=== PATIENT | male | born 1975 | race African-American/Black ===

== ENCOUNTER 2019-07-06 15:38 | Emergency (ER) | payer OTHER, SELFPAY ==
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
[2019-07-06 15:42] VITALS: BP 172/107; PULSE 93; RESP 16; TEMP 36.9; O2SAT 98
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
--- NOTE | 2019-07-06 16:43 | PC.NURSE ---
Pt unable to void at present. Explained clean catch urine collection procedure to patient.
[2019-07-06 17:39] LABS: Add Urine Microscopic? YES; Appearance Urine Clear (Clear); Bilirubin Urine Negative (Negative); Blood Urine Negative (Negative); Color Urine Yellow (Yellow); Glucose Urine UA Negative (Negative); Ketones Urine Negative (Negative); Leukocyte Esterase Ur 1+ LEU/UL (Negative); Nitrate Urine Negative (Negative); Protein Urine Negative (Negative); RBC Urine 0-2 /hpf (0-2); Specific Grav Ur 1.014 (1.001-1.035); Squamous Epithelial Cell Urine Rare /hpf (Few); Urobilinogen Urine Negative mg/dL (<2.0); WBC Urine 16-20 /hpf
[2019-07-06 18:02] VITALS: BP 168/96; PULSE 92; RESP 18; O2SAT 97
[2019-07-06 18:10] LABS: Basophils Absolute Auto 0.1 K/mm3 (0.0-0.1); Basophils Percent Auto 0.7 % (0.2-1.2); Eosinophils Absolute Auto 0.2 K/mm3 (0-0.3); Eosinophils Percent Auto 2.9 % (0-4.4); Hemoglobin 14.4 g/dL (14.0-18.0); Immature Granulocyte Absolute 0.03 K/mm3 (0.00-0.031); Immature Granulocyte Percent A 0.4 % (0-0.5); Lymphocytes Absolute Auto 3.38 K/mm3 (0.9-3.2); Lymphocytes Percent Auto 48.6 % (18.3-44.2); Mean Corpuscular HGB Conc 34.3 g/dl (32-36); Mean Corpuscular Hemoglobin 31.5 pg (26-34); Mean Corpuscular Volume 91.9 fl (80-100); Mean Platelet Volume 8.7 fl (7.4-10.4); Monocytes Absolute Auto 0.5 K/mm3 (0.1-0.6); Monocytes Percent Auto 7.3 % (2.6-8.5); Neutrophils Absolute Auto 2.8 K/mm3 (1.3-6.7); Neutrophils Percent Auto 40.1 % (45.5-73.1); Platelet Count Result 281 k/mm3 (150-375); Red Blood Count 4.57 M/mm3 (4.6-6.20); Red Cell Distribution Width 13.1 % (11.5-14.5)
[2019-07-06 18:28] LABS: Alanine Aminotransferase 47 U/L (4-50); Albumin Level 4.6 g/dL (3.5-5.1); Alkaline Phosphatase 92 U/L (38-126); Aspartate Amino Transferase 38 U/L (17-59); Bilirubin,Total 0.3 mg/dL (0.2-1.3); Blood Urea Nitrogen 9 mg/dL (9-20); Calcium 9.2 mg/dL (8.4-10.2); Carbon Dioxide 25 mmol/L (22-30); Chloride 102 mmol/L (98-107); Estimated CRCL calculation 97 ml/min; Estimated Glomerular Filt Rate > 60; Glucose 95 mg/dL (75-110); Sodium 137 mmol/L (137-145)
[2019-07-06] MEDS: CIPROFLOXACIN 500 MG TAB PO (19:31)
== END 2019-07-06 19:32 | disposition home or self-care (01) ==
PROVIDERS: Emergency Provider Emergency Medicine; PCP Family Medicine
DX: S16.1XXA Strain of muscle, fascia and tendon at neck level, initial encounter (principal); S39.012A Strain of muscle, fascia and tendon of lower back, initial encounter; N39.0 Urinary tract infection, site not specified; I10 Essential (primary) hypertension; V43.62XA Car passenger injured in collision with other type car in traffic accident, initial encounter
CPT/HCPCS: 36415; 70450; 71046; 72100; 72125; 74177; 80053; 81001; 85025; 87086; 87491; 87591; 99284; A9270; Q9967

== ENCOUNTER 2019-08-19 19:00 | Inpatient (IN) | payer SELFPAY ==
--- NOTE | ~2019-08-19 | CT_ITS ---
EXAMINATION: CTA brain carotid DATE: 08/19/2019 22:47 CDT INDICATION: CVA TECHNIQUE: Computed tomographic angiography (CTA) of the head was performed without and with 100 mL O mnipaque-350 intravenous contrast. CTA of the neck was performed with intravenous contrast. The dose- length product was 1231.42 mGy-cm. Maximum intensity projection and volume rendered 3D-reconstruction s were created by the technologist on a separate workstation. COMPARISON: CT dated 08/19/2019. FINDINGS: HEAD CTA: There is normal contrast opacification of the anterior, middle and posterior cerebral arter ies without evidence for significant stenosis or aneurysm. NECK CTA: There is normal contrast opacification of the carotid arteries without hemodynamically sign ificant stenosis, occlusion, dissection or aneurysm. Visualized lung parenchyma is unremarkable. Thyr oid gland is normal. No significant osseous abnormality. There is 0% stenosis of the proximal right internal carotid artery relative to normal distal artery l umen diameter (NASCET criteria). There is 0% stenosis of the proximal left internal carotid artery re lative to normal distal artery lumen diameter. IMPRESSION: 1. No significant vascular abnormality of the neck or head. No significant stenosis, occlusion, aneur ysm or dissection. Reviewed, dictated and finalized at location A. IMPRESSION: 1. No significant vascular abnormality of the neck or head. No significant sten osis, occlusion, aneurysm or dissection.
--- NOTE | ~2019-08-19 | CT_ITS ---
EXAMINATION: CT BRAIN W/O DATE: 08/19/2019 20:58 INDICATION: Left-sided weakness. Left facial numbness. TECHNIQUE: Computed tomography (CT) of the head was performed without intravenous contrast. The dose- length product was 681.00 mGy-cm. The mA was adjusted according to patient size. Iterative reconstruction technique was employed. COMPARISON: CT dated 07/06/2019 FINDINGS: Normal brain parenchymal volume for age. Normal anaya-white differentiation. No acute intrac ranial hemorrhage, infarction, mass or mass effect. No ventriculomegaly or midline shift. Midline sagittal images demonstrate a normal corpus callosum, c raniovertebral junction and sella turcica. Basilar cisterns are patent. Paranasal sinuses and mastoids are pneumatized. 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 There are foreign bodies in the left parietal and frontal scalp. There is a foreign body in the right orbit medially. No depressed skull fractures. IMPRESSION: 1. No acute intracranial abnormality. Reviewed, dictated and finalized at location A.
--- NOTE | ~2019-08-19 | XR_ITS ---
EXAMINATION: XR chest 1V portable 08/19/2019 21:06 INDICATION: Left-sided facial droop. Left arm tingling. PROCEDURE: AP view of the chest COMPARISON: 07/06/2019 FINDINGS: The lungs are clear. The cardiomediastinal silhouette is within normal limits. There are no pleural effusions. There is no pneumothorax suspected. IMPRESSION: 1: NO ACUTE CARDIOPULMONARY DISEASE. Reviewed, dictated and finalized at location A.
--- NOTE | ~2019-08-19 | US_ITS ---
EXAMINATION: US carotid duplex BI DATE: 08/20/2019 12:09 INDICATION: Left facial numbness. TECHNIQUE: Grayscale, color Doppler, and pulsed Doppler images of the cervical carotid arteries were obtained. The degree of vessel stenosis is placed in one of the following categories: normal, <50%, 5 0-69%, >=70% but less than near-occlusion, near-occlusion, or total occlusion. Note that percent sten osis relative to normal distal artery lumen diameter is indirectly measured from velocity measurement s as described by Yan, et al. Radiology 2003; 229:340-346. COMPARISON: CTA 08/19/2019 FINDINGS: RIGHT: The right common carotid artery (CCA) peak systolic velocity (PSV) is 65 cm/s. The right internal car otid artery (ICA) PSV is 106 cm/s. The right ICA end-diastolic velocity (EDV) is 51 cm/s. The right I CA/CCA PSV ratio is 1.6. Grayscale and color Doppler images yield an estimate of <50% diameter reduct ion from plaque in the ICA. There is antegrade flow in the right vertebral artery. LEFT: The left CCA PSV is 103 cm/s. The left ICA PSV is 120 cm/s. The left ICA EDV is 51 cm/s. The left ICA /CCA PSV ratio is 1.2. Grayscale and color Doppler images yield an estimate of <50% diameter reductio n from plaque in the ICA. There is antegrade flow in the left vertebral artery. IMPRESSION: 1. <50% stenosis in the right internal carotid artery. 2. <50% stenosis in the left internal carotid artery. Reviewed, dictated and finalized at location A.
[2019-08-19 19:06] VITALS: BP 180/106; PULSE 109; RESP 14; TEMP 36.7; O2SAT 98
--- NOTE | 2019-08-19 19:09 | ECG_ITS ---
Measurements Intervals [place] Rate: 92 P: 56 DE: 155 QRS: 12 QRSD: 91 T: 49 QT: 345 QTc: 427 Interpretive Statements SINUS RHYTHM BORDERLINE R WAVE PROGRESSION, ANTERIOR LEADS NONSPECIFIC T-WAVE ABNORMALITY- DIFFUSE LEADS BASELINE WANDER- V3 BORDERLINE ECG Electronically Signed On 08-19-2019 19:59:23 CDT by Acosat Pat D.O.
[2019-08-19 20:38] VITALS: BP 165/116; PULSE 89; RESP 14
--- NOTE | 2019-08-19 20:45 | ED.GENADULT ---
HPI - General Adult General Chief complaint: Allergic Reaction Stated complaint: Left side of face is numb - sent from Urgent Care Time Seen by Provider: 08/19/19 20:40 Source: RN notes reviewed History of Present Illness HPI narrative: Patient presents emergency department from home for facial droop. Patient states that approximately 3 PM today he began to notice some facial droop and numbness in his left face as well as weakness in his left arm. Patient states he was smoking marijuana when this occurred. He states that since that time he is continued to have the droop as well as some mild left arm weakness. He denies any fevers or chills chest pain abdominal pain nausea vomiting noted some mild shortness of breath with the symptoms. 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 Related Data Allergies Allergy/AdvReac Type Severity Reaction Status Date / Time Penicillins Allergy Rash Verified 07/06/19 15:48 shrimp AdvReac Difficulty Verified 08/19/19 22:25 Breathing Review of Systems Review of Systems: Narrative: Gen.: Denies fevers or chills Eyes: Reviewed reports left eye prosthesis ENT: Denies congestion Respiratory: Reports mild short of breath CV: Denies chest pain or palpitations GI: Denies abdominal pain nausea, emesis or diarrhea denies burning, urgency, frequency or hematuria Musculoskeletal: Denies back pain or muscle pain Neuro: See HPI Skin: Denies rash Except as documented, all other systems reviewed and negative [facility] Past Medical History Medical History Hypertension Social History Social History Smoking packs per day: 0.5 Smoking cigarettes per day: 10.0 Gender identity (if verbalized by the patient): Male Exam Narrative: Exam Narrative: APPEARANCE: No acute distress, nontoxic, resting in bed HEENT: Normocephalic, atraumatic, OMM, TMs clear bilaterally EYES: PERRL, EOMI NECK: Supple, nontender, full range of motion without pain, no meningismus RESPIRATORY: No respiratory distress, clear to auscultation bilaterally with no rhonchi wheezing or rales CARDIOVASCULAR: RRR s murmur ABDOMINAL: Soft, nontender, nondistended MUSCULOSKELETAL: Moves all extremities. No clubbing, cyanosis or edema. NEURO: A and O ?3, following commands, mild slurred speech, left facial droop, muscle strength 5 out of 5 in the right upper extremity and bilateral lower extremities muscle strength 4 out of 5 left upper extremity, mild left pronator drift left upper extremity SKIN:: Warm, dry. Normal Color PSYCHIATRIC: Normal affect/mood Course Course Emergency Course: Discussed with Dr. French presentation work-up. Agrees with admission at this time. Discussed with patient and family results of workup and diagnosis. Discussed need for admission. Patient and family understand and agree to current treatment plan Vital Signs Vital signs: Vital Signs Temperature 98.1 F 08/19/19 19:06 Pulse Rate 109 H 08/19/19 19:06 Respiratory Rate 14 08/19/19 19:06 Blood Pressure 180/106 H 08/19/19 19:06 Pulse Oximetry 98 08/19/19 19:06 Temperature 98.3 F 08/19/19 22:01 Pulse Rate 69 08/19/19 22:48 Respiratory Rate 16 08/19/19 22:48 Blood Pressure 160/99 H 08/19/19 22:48 Pulse Oximetry 100 08/19/19 22:48 Medical Decision Making [facility] Narrative Medical decision making narrative: Patient presents with a left facial droop and left arm weakness. Patient is outside the window of TPA. I do believe the patient is had a likely CVA at this time will admit for further evaluation Vital Signs Vital Signs: Vital Signs Temperature 98.1 F 08/19/19 19:06 Pulse Rate 109 H 08/19/19 19:06 Respiratory Rate 14 08/19/19 19:06 Blood Pressure 180/106 H 08/19/19 19:06 Pulse Oximetry 98 08/19/19 19:06 Temperature 98.3 F 08/19/19 22:01 Pulse Rate 69 08/19/19 22:48 Respiratory Rate
--- NOTE | 2019-08-19 20:49 | PC.NURSE ---
2034-pt amb to room, pt here with c/o left sided facial drooping, left side weakness and slurred speech. pt reports onset of symptoms were at 1500. pt denies hx of cva.
[2019-08-19 20:58] LABS: Basophils Percent Auto 0.5 % (0.2-1.2); Eosinophils Absolute Auto 0.4 K/mm3 (0-0.3); Eosinophils Percent Auto 4.3 % (0-4.4); Hematocrit 45.6 % (42.0-52.0); Hemoglobin 15.5 g/dL (14.0-18.0); Immature Granulocyte Absolute 0.05 K/mm3 (0.00-0.031); Immature Granulocyte Percent A 0.6 % (0-0.5); Lymphocytes Absolute Auto 3.55 K/mm3 (0.9-3.2); Lymphocytes Percent Auto 43.7 % (18.3-44.2); Mean Corpuscular Hemoglobin 31.3 pg (26-34); Mean Corpuscular Volume 91.9 fl (80-100); Monocytes Absolute Auto 0.6 K/mm3 (0.1-0.6); Monocytes Percent Auto 7.9 % (2.6-8.5); Neutrophils Absolute Auto 3.5 K/mm3 (1.3-6.7); Platelet Count Result 310 k/mm3 (150-375); Red Blood Count 4.96 M/mm3 (4.6-6.20); Red Cell Distribution Width 13.3 % (11.5-14.5); White Blood Count 8.1 K/mm3 (4.5-10.0)
[2019-08-19 21:08] LABS: INR 0.9; Prothrombin Time 11.9 Seconds (11.1-14.7)
[2019-08-19 21:10] LABS: Blood Urea Nitrogen 6 mg/dL (9-20); Calcium 9.4 mg/dL (8.4-10.2); Carbon Dioxide 25 mmol/L (22-30); Chloride 105 mmol/L (98-107); Estimated CRCL calculation 99 ml/min; Estimated Glomerular Filt Rate > 60; Glucose 107 mg/dL (75-110); Potassium 4.1 mmol/L (3.4-5.0); Sodium 139 mmol/L (137-145)
--- NOTE | 2019-08-19 21:19 | PC.NURSE ---
Neuro check completed by this RN and MD.
[2019-08-19 21:22] LABS: Troponin I < 0.012 ng/mL (0.000-0.034)
[2019-08-19 22:01] VITALS: BP 151/99; PULSE 70; RESP 17; TEMP 36.8; O2SAT 99
[2019-08-19] MEDS: ASPIRIN 81 MG CHEWABLE TABLET 324 MG PO (22:47)
[2019-08-19 22:48] VITALS: BP 160/99; PULSE 69; RESP 16; O2SAT 100
--- NOTE | 2019-08-19 22:49 | PC.NURSE ---
Pt left side of face looks to have went back to normal, no facial droop noticed. Pt states his left hand is becoming numb, pt can barely squeeze my hand at this time or wiggle fingers. Pt states no difference in left arm or shoulder just in his hand. Pt denies being in any pain.
[2019-08-20] VITALS (7 sets, daily range): BP systolic 141–155; BP diastolic 72–88; PULSE 59–83; RESP 15–21; TEMP 36.1; O2SAT 99–100; BMI 34.7
--- NOTE | 2019-08-20 00:37 | PC.NURSE ---
This patient, Robert Alarcon, was admitted to 2 Medical Room 242-. Patient/family oriented to hospital policies and general routines including ID bracelet, bed and alarms, visiting hours, pain management, procedures, bathroom and other care routines, personal items, smoking policy, room service/diet, and visiting hours. Valuables list has been completed. Information on how to activate the Rapid Response Team has been discussed. Patient/Family are encouraged to report perceived risks to care and to ask questions if they do not understand what they are told or what they should do.
[2019-08-20 01:16] LABS: Troponin I < 0.012 ng/mL (0.000-0.034)
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
[2019-08-20 05:23] LABS: Basophils Percent Auto 0.5 % (0.2-1.2); Eosinophils Absolute Auto 0.3 K/mm3 (0-0.3); Eosinophils Percent Auto 3.9 % (0-4.4); Hematocrit 39.4 % (42.0-52.0); Hemoglobin 13.4 g/dL (14.0-18.0); Immature Granulocyte Absolute 0.06 K/mm3 (0.00-0.031); Immature Granulocyte Percent A 0.7 % (0-0.5); Lymphocytes Absolute Auto 3.88 K/mm3 (0.9-3.2); Lymphocytes Percent Auto 45.1 % (18.3-44.2); Mean Corpuscular Volume 91.2 fl (80-100); Mean Platelet Volume 9.1 fl (7.4-10.4); Monocytes Absolute Auto 0.6 K/mm3 (0.1-0.6); Monocytes Percent Auto 7.4 % (2.6-8.5); Neutrophils Absolute Auto 3.7 K/mm3 (1.3-6.7); Neutrophils Percent Auto 42.4 % (45.5-73.1); Platelet Count Result 261 k/mm3 (150-375); Red Blood Count 4.32 M/mm3 (4.6-6.20); Red Cell Distribution Width 13.1 % (11.5-14.5); White Blood Count 8.6 K/mm3 (4.5-10.0)
[2019-08-20 05:33] LABS: Blood Urea Nitrogen 7 mg/dL (9-20); Calcium 8.9 mg/dL (8.4-10.2); Carbon Dioxide 27 mmol/L (22-30); Chloride 103 mmol/L (98-107); Estimated CRCL calculation 84 ml/min; Estimated Glomerular Filt Rate > 60; Glucose 217 mg/dL (75-110); Potassium 3.9 mmol/L (3.4-5.0); Sodium 135 mmol/L (137-145)
[2019-08-20] MEDS: hydroCHLOROthiazide 25 MG TABLET PO (10:21)
[2019-08-20] MEDS: amLODIPine BESYLATE 5 MG TABLET PO (10:21)
[2019-08-20] MEDS: ASPIRIN 325 MG TABLET PO (10:21)
--- NOTE | 2019-08-20 10:37 | ECHO_ITS ---
Patient Info Name: Robert Alarcon Age: 44 years : 1975 Gender: Male Ht: 72 in Wt: 256 lbs BSA: 2.47 m2 HR: 56 bpm BP: 146 / 72 mmHg Heart Rhythm: Sinus Rhythm Technical Quality: Good Exam Date: 08/20/2019 2:16 PM Exam Location: [facility] Patient Status: Inpatient Admit Date: 08/20/2019 Staff Ordering Physician: Ronald Carbajal MD Carpenter Inspector: Feliz Alvarado RDCS Attending Provider: Kassandra Rojas PA-C Referring Physician: Solomon SMITH; Exam Type: CA echo doppler w bubble study Study Info Indications 436.0 - CVA Complete two-dimensional, color flow and Doppler transthoracic echocardiogram is performed with agitated saline. Contrast/Agitated Saline Contrast/Ag. Saline: Agitated Saline Amount: 18.00 ml Existing IV Access: Yes History/Risk Factors CVA; HTN, L facial droop. Summary 1. E/e' 8 is minimally elevated. 2. Global longitudinal strain is abnormal at -15.3%. Left Ventricle E/e' 8 is minimally elevated. Global longitudinal strain is abnormal at -15.3%. Left ventricular chamber dimension is normal. Left ventricular systolic function is normal, estimated at 65-70%. There is severe concentric increased left ventricular wall thickness. The left ventricular diastolic function is normal. Right Ventricle Right ventricular chamber dimension is normal. Right ventricular systolic function is normal. Left Atria Left atrial chamber dimension is mildly enlarged. Right Atria Right atrial chamber dimension is normal. Atrial Septum Intact interatrial septum visualized by agitated saline imaging. Agitated saline with and without valsalva maneuver performed opacified right sided cardiac chambers without shunt into left cardiac chambers. Based on these findings, no patent foramen ovale or atrial septal defect. Aortic Valve The aortic valve is trileaflet. There is mild aortic valve sclerosis. There is no aortic valve stenosis. There is no aortic valve regurgitation. Pulmonic Valve There is no pulmonic regurgitation. Mitral Valve There is no mitral valve stenosis. There is mild mitral valve regurgitation. Tricuspid Valve There is no tricuspid valve regurgitation. Pericardium/Pleural There is no pericardial effusion. Inferior Vena Cava Normal inferior vena cava with >50% collapse upon inspiration consistent with normal right atrial pressure, 5 mmHg. Aorta The aortic root size at the sinus of Valsalva is normal. Left Ventricular Outflow Tract Name Value Normal LVOT 2D LVOT Diameter 2.3 cm LVOT Doppler LVOT Peak Gradient 7 mmHg LVOT Mean Gradient 4 mmHg LVOT VTI 25 cm LVOT VTI/AV VTI Ratio 0.8 LVOT Stroke Volume 99 ml LVOT CO 6.4 l/min LVOT CI 2.6 l/min/m2 Mitral Valve Name Value
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
== END 2019-08-20 17:26 | disposition left against medical advice (07) | DRG 45 ==
LOC: ANHED 23:17 → ANH2MED 23:26
PROVIDERS: Admitting Provider Internal Medicine; Emergency Provider Emergency Medicine; PCP Family Medicine; Visit Provider Internal Medicine
DX: I63.9 Cerebral infarction, unspecified (principal); R20.0 Anesthesia of skin; R29.810 Facial weakness; R47.81 Slurred speech; I10 Essential (primary) hypertension; F17.210 Nicotine dependence, cigarettes, uncomplicated; R29.704 NIHSS score 4; Z97.0 Presence of artificial eye; W34.00XS Accidental discharge from unspecified firearms or gun, sequela; Z91.19 Patient's noncompliance with other medical treatment and regimen; Z18.10 Retained metal fragments, unspecified; Z87.828 Personal history of other (healed) physical injury and trauma
CPT/HCPCS: 36415; 70450; 70496; 70498; 71045; 80048; 82948; 84484; 85025; 85610; 85730; 93005; 93306; 93880; 96375; 97161; 97165; 99285; A9270; Q9967

== ENCOUNTER 2019-10-31 20:50 | Emergency (ER) | payer OTHER, SELFPAY ==
--- NOTE | ~2019-10-31 | CT_ITS ---
EXAMINATION: CT brain wo con DATE: 10/31/2019 21:19 INDICATION: Syncope. Headache. TECHNIQUE: Computed tomography (CT) of the head was performed without intravenous contrast. The mA wa s adjusted according to patient size. Iterative reconstruction technique was employed. The dose-lengt h product was 605.33 mGy-cm. COMPARISON: Head CT 08/19/2019 FINDINGS: There is no intracranial hemorrhage, acute infarction, or abnormal intracranial mass lesion . The ventricles are normal in size. There is a prosthesis in left orbit. There are multiple pieces o f shrapnel in the scalp and in the ethmoid sinuses. There is a piece of shrapnel in the extraconal ri ght orbit. The mastoid air cells are normal. IMPRESSION: 1. Normal brain. 2. Chronic shrapnel in the scalp, ethmoid sinuses, and extraconal right orbit. Reviewed, dictated and finalized at location A.
--- NOTE | ~2019-10-31 | XR_ITS ---
EXAMINATION: XR chest 1V DATE: 10/31/2019 21:26 INDICATION: Cough. Syncope. TECHNIQUE: A single frontal view of the chest was obtained. COMPARISON: Chest single view 08/19/2019 FINDINGS: The chest demonstrates clear lungs without pneumonia, pleural effusion, or pneumothorax. Th e heart size is normal. IMPRESSION: 1. No acute cardiopulmonary disease. Reviewed, dictated and finalized at location A.
[2019-10-31 20:52] VITALS: BP 149/94; PULSE 94; RESP 18; TEMP 35.6; O2SAT 100
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
[2019-10-31] MEDS: KETOROLAC 30 MG/ML VIAL (*BKC) IV PUSH (21:07)
[2019-10-31] MEDS: METOCLOPRAMIDE HCL INJ 10 MG/2 ML VIAL IV PUSH (21:07)
[2019-10-31] MEDS: diphenhydrAMINE HCl INJ 50 MG/ML VIAL 25 MG IV PUSH (21:07)
[2019-10-31] MEDS: SODIUM CHLORIDE 0.9% IV 1,000 ML 999 ML IV CONT (21:08)
--- NOTE | 2019-10-31 21:16 | PC.NURSE ---
Patient taken to radiology.
[2019-10-31] MEDS: MORPHINE SULFATE (*CRX) 4 MG/ML INJ IV PUSH (22:12)
[2019-10-31] MEDS: ONDANSETRON INJ 4 MG/2 ML VIAL IV PUSH (22:12)
[2019-10-31 22:57] VITALS: BP 140/87; PULSE 92; RESP 18; O2SAT 98
[2019-10-31 23:01] LABS: Amphetamine Screen Urine Negative (Negative); Barbiturate Screen Urine Negative (Negative); Benzodiazepines Screen Urine Negative (Negative); Cannabinoid Screen Urine Positive (Negative); Cocaine Screen Urine Positive (Negative); Methadone Screen Urine Negative (Negative); Opiate Screen Urine Positive (Negative); Phencyclidine Screen Urine Negative (Negative)
== END 2019-10-31 22:59 | disposition home or self-care (01) ==
PROVIDERS: Emergency Provider Emergency Medicine; PCP Family Medicine
DX: R55 Syncope and collapse (principal); R05 Cough; I10 Essential (primary) hypertension; F17.210 Nicotine dependence, cigarettes, uncomplicated; Z86.73 Personal history of transient ischemic attack (TIA), and cerebral infarction without residual deficits
CPT/HCPCS: 70450; 71045; 80307; 96361; 96374; 96375; 99284; J1200; J1885; J2270; J2405; J2765; J7030

== ENCOUNTER 2020-01-12 17:07 | Outpatient (CLI) | payer OTHER, SELFPAY ==
--- NOTE | ~2020-01-12 | XR_ITS ---
EXAMINATION: XR lumbar spine 2-3V DATE: 01/12/2020 17:25 INDICATION: Chronic low back pain TECHNIQUE: Anteroposterior and lateral views of the lumbar spine, and cone-down lateral view of the l umbosacral junction were obtained. COMPARISON: Lumbar spine and chest radiographs and CT of the abdomen and pelvis, all dated 07/06/2019 FINDINGS: Transitional thoracolumbar and lumbosacral segments. There are 12 paired rib-bearing thoracic segment s on the prior chest radiograph. The transitional thoracolumbar segment with hypoplastic right-sided riblet and left-sided transverse process for purposes of this report will be numbered L1. L6 is sacra lized bilaterally with broadened transverse processes articulating with the bilateral sacral ala. The re are 4 intervening nonrib-bearing lumbar segments L2-L5. Alignment is normal. Mild disc height loss at L5-L6. Central canal is small at the level of L5 and L6. Mild lower lumbar facet osteoarthritis. Sacrum and bilateral sacroiliac joints are unremarkable. IMPRESSION: 1. Transitional thoracolumbar and lumbosacral segments as detailed above. 2. 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 Reviewed, dictated and finalized at location A. 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
== END 2020-01-12 17:08 | disposition home or self-care (01) ==
PROVIDERS: PCP Family Medicine; Visit Provider Physician Assistant
DX: M47.896 Other spondylosis, lumbar region (principal)
CPT/HCPCS: 72100

== ENCOUNTER 2020-12-28 06:15 | Emergency (ER) | payer OTHER, SELFPAY ==
--- NOTE | ~2020-12-28 | XR_ITS ---
XR chest 1V portable DATE: 12/28/2020 06:56 INDICATION: Fever, mild shortness of breath TECHNIQUE: Portable upright AP chest on 12/28/2020 at 0655 hours COMPARISON: 10/31/2019 chest FINDINGS: Normal heart size. No hilar or mediastinal enlargement. No pulmonary infiltrate or consolid ation, pleural effusion or pulmonary vascular congestion or pneumothorax. Included skeletal structure s are unremarkable. 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
[2020-12-28 06:37] VITALS: BP 168/112; PULSE 98; RESP 20; TEMP 37.3; O2SAT 98
[2020-12-28 06:57] LABS: Basophils Absolute Auto 0.07 K/mm3 (0.00-0.10); Basophils Percent Auto 0.5 % (0.0-1.0); Eosinophils Absolute Auto 0.34 K/mm3 (0.02-0.50); Eosinophils Percent Auto 2.4 % (1.0-6.0); Hematocrit 45.9 % (40.0-54.0); Hemoglobin 15.2 g/dL (14.0-18.0); Immature Granulocyte Absolute 0.04 K/mm3 (0.00-0.00); Immature Granulocyte Percent A 0.3 % (0.0-0.0); Lymphocytes Absolute Auto 3.33 K/mm3 (1.10-4.50); Lymphocytes Percent Auto 23.5 % (18.0-42.0); Mean Corpuscular HGB Conc 33.1 g/dL (32.0-36.0); Mean Corpuscular Hemoglobin 30.7 pg (27.0-31.0); Mean Corpuscular Volume 92.7 fL (78.0-102.0); Mean Platelet Volume 9.2 fl (8.7-11.0); Monocytes Absolute Auto 1.24 K/mm3 (0.10-0.90); Monocytes Percent Auto 8.7 % (2.0-11.0); Neutrophils Absolute Auto 9.2 K/mm3 (1.7-7.2); Neutrophils Percent Auto 64.6 % (50.0-70.0); Platelet Count Result 303 K/mm3 (150-420); Red Blood Count 4.95 M/mm3 (4.70-6.10); Red Cell Distribution Width 13.1 % (11.6-14.4); White Blood Count 14.2 K/mm3 (4.8-10.8)
[2020-12-28] MEDS: ACETAMINOPHEN 325 MG TABLET 650 MG PO (07:01)
[2020-12-28] MEDS: cefTRIAXone 1 GM VIAL IM (07:02)
[2020-12-28 07:09] LABS: Alanine Aminotransferase 35 U/L (16-63); Albumin Level 3.7 g/dL (3.4-5.0); Alkaline Phosphatase 132 U/L (46-116); Anion Gap 10 mmol/L (8-16); Aspartate Amino Transferase < 10 U/L (15-37); Bilirubin,Total 0.6 mg/dL (0.00-1.00); Blood Urea Nitrogen 7 mg/dL (7-18); Calcium 9.3 mg/dL (8.5-10.1); Carbon Dioxide 26 mmol/L (21-32); Chloride 100 mmol/L (98-108); Estimated CRCL calculation 93 ml/min; Estimated Glomerular Filt Rate > 60; Glucose 132 mg/dL (70-99); Osmolality Calculated 282 mOsm/kg (285-295); Potassium 3.9 mmol/L (3.5-5.1); Sodium 136 mmol/L (136-145); Total Protein 8.2 g/dL (6.4-8.2)
[2020-12-28 07:16] LABS: Influenza Control Valid (Valid)
[2020-12-28 07:16] LABS: SARS-CoV-2 Ag Negative (Negative)
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
--- NOTE | 2020-12-28 07:20 | PC.NURSE ---
report to BEATRIZ Abad. pt resting per cot. awaiting covid result.
[2020-12-28] MEDS: guaiFENesin 12 HR 600 MG TABCR PO (07:27)
[2020-12-28 07:34] VITALS: BP 158/100; PULSE 100; RESP 18; TEMP 36.6; O2SAT 99
== END 2020-12-28 08:08 | disposition home or self-care (01) ==
PROVIDERS: Emergency Provider Emergency Medicine; PCP Family Medicine
DX: J02.0 Streptococcal pharyngitis (principal); I10 Essential (primary) hypertension; Z20.822 Contact with and (suspected) exposure to COVID-19
CPT/HCPCS: 71045; 80053; 85025; 87426; 87804; 87880; 96372; 99283; A9270; C9803; J0696

== ENCOUNTER 2021-07-18 14:26 | Emergency (ER) | payer OTHER, SELFPAY ==
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
[2021-07-18 14:27] VITALS: BP 165/112; PULSE 93; RESP 20; O2SAT 100
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
[2021-07-18] MEDS: SODIUM CHLORIDE 0.9% IV 1,000 ML 999 ML IV CONT (15:40)
[2021-07-18] MEDS: METOCLOPRAMIDE HCL INJ 10 MG/2 ML VIAL IV PUSH (15:41)
[2021-07-18] MEDS: diphenhydrAMINE HCl INJ 50 MG/ML VIAL 25 MG IV PUSH (15:41)
[2021-07-18] MEDS: hydroCHLOROthiazide 25 MG TABLET PO (15:41)
[2021-07-18] MEDS: amLODIPine BESYLATE 5 MG TABLET 10 MG PO (15:42)
[2021-07-18] MEDS: KETOROLAC 30 MG/ML VIAL (*BKC) IV PUSH (16:14)
[2021-07-18 17:22] VITALS: BP 131/92; PULSE 64; RESP 10; O2SAT 100
== END 2021-07-18 17:22 | disposition home or self-care (01) ==
PROVIDERS: Emergency Provider General Practice; PCP Physician Assistant
DX: R51.9 Headache, unspecified (principal); I10 Essential (primary) hypertension; Z86.73 Personal history of transient ischemic attack (TIA), and cerebral infarction without residual deficits; F17.210 Nicotine dependence, cigarettes, uncomplicated
CPT/HCPCS: 70450; 96361; 96374; 96375; 99284; A9270; J0131; J1200; J1885; J2765; J7030

== ENCOUNTER 2021-08-07 15:53 | Outpatient (CLI) | payer OTHER, SELFPAY ==
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
== END 2021-08-07 15:54 | disposition home or self-care (01) ==
LOC: CHSIMG 15:55
PROVIDERS: PCP Physician Assistant; Visit Provider Physician Assistant
DX: M54.9 Dorsalgia, unspecified (principal)
CPT/HCPCS: 72110

== ENCOUNTER 2021-08-14 17:02 | Outpatient (RCR) | payer OTHER, SELFPAY ==
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
--- NOTE | 2021-09-26 08:43 | PCPTNOTE ---
Pt. attended a total of 3 sessions from 08/15/21 to 09/10/21. He has failed to return to the clinic and will be discharged from our care at this time. Refer to last daily note for pt. discharge status.
== END 2021-09-10 14:17 | disposition home or self-care (01) ==
LOC: CHSPT 17:02
PROVIDERS: PCP Physician Assistant; Visit Provider Physician Assistant
DX: M47.816 Spondylosis without myelopathy or radiculopathy, lumbar region (principal)
CPT/HCPCS: 97014; 97110; 97140; 97161; G0283

== ENCOUNTER 2021-11-26 07:06 | Emergency (ER) | payer OTHER, SELFPAY ==
[2021-11-26 07:17] VITALS: BP 159/110; PULSE 91; RESP 16; TEMP 36.5; O2SAT 100
[2021-11-26] MEDS: cloNIDine HCL 0.2 MG TABLET PO (07:46)
[2021-11-26] MEDS: ACETAMINOPHEN 325 MG TABLET 650 MG PO (07:46)
[2021-11-26] MEDS: ERYTHROMYCIN OPHTH OINTMENT 3.5 GM TUBE 1 APPLIC LEFT EYE (07:46)
[2021-11-26 08:11] VITALS: BP 155/118
--- NOTE | 2021-11-26 08:11 | PC.NURSE ---
BP remains high. Pt states it's always high . Pt has not taken his Px BP meds like he is supposed to this AM. Pt informed that a second dose of clonidine could be given in ER. Pt refused, saying that will take his Px meds when he gets home. ERP aware.
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
--- NOTE | 2021-11-26 08:41 | PC.NURSE ---
ERP ordered eye exam tray, however, Pt is missing his left eye. Pt previously stated to RN that he has been unable to wear his prosthetic eye since Friday. ERP aware and no eye exam supplies were needed.
== END 2021-11-26 08:38 | disposition home or self-care (01) ==
PROVIDERS: Emergency Provider Emergency Medicine; PCP Family Medicine
DX: H00.015 Hordeolum externum left lower eyelid (principal); I10 Essential (primary) hypertension
CPT/HCPCS: 99283; A9270

== ENCOUNTER 2022-07-22 10:37 | Outpatient (CLI) | payer OTHER, SELFPAY ==
--- NOTE | ~2022-07-22 | CT_ITS ---
EXAMINATION: CT lumbar spine wo con DATE: 07/22/2022 11:32 INDICATION: Lumbar radiculopathy. TECHNIQUE: Computed tomography (CT) of the lumbar spine was performed without intravenous contrast. A utomated exposure control and iterative reconstruction technique were employed. The dose-length produ ct was 1305.87 mGy-cm. COMPARISON: Lumbar spine radiograph 08/07/2021, chest radiograph 07/30/2021 FINDINGS: There is a small rib at L1 on the right. S1 is a transitional segment. There is 3 degrees d extrocurvature of lumbar spine. Vertebral body heights are normal. There is moderately decreased disc height at L5-S1. Osseous central spinal canal is developmentally small in lumbar spine. The followin g disc levels are specifically discussed: L1-L2: The disc does not extend beyond the endplate margin. There is mild bilateral facet joint osteo arthritis. There is no neural foraminal stenosis. There is mild central canal stenosis. L2-L3: The disc is bulging. There is mild bilateral facet joint osteoarthritis. There is mild bilater al neural foraminal stenosis. There is mild central canal stenosis. L3-L4: The disc is bulging. There is moderate bilateral facet joint osteoarthritis. There is mild raf ateral neural foraminal stenosis. There is mild central canal stenosis. L4-L5: The disc is bulging. There is moderate bilateral facet joint osteoarthritis. There is mild raf ateral neural foraminal stenosis. There is mild central canal stenosis. L5-S1: The disc is bulging. There is moderate bilateral facet joint osteoarthritis. There is moderate bilateral neural foraminal stenosis. There is moderate central canal stenosis. IMPRESSION: 1. Moderate lower lumbar spondylosis. Reviewed, dictated and finalized at location A.
== END 2022-07-22 10:38 | disposition home or self-care (01) ==
PROVIDERS: PCP Family Medicine; Visit Provider Physical Medicine & Rehabilitation
DX: M47.816 Spondylosis without myelopathy or radiculopathy, lumbar region (principal)
CPT/HCPCS: 72131

== ENCOUNTER 2023-11-05 14:44 | Outpatient (CLI) | payer OTHER, SELFPAY ==
[2023-11-05 15:16] LABS: Basophils Percent Auto 0.5 % (0.2-1.2); Eosinophils Absolute Auto 0.3 K/mm3 (0-0.3); Eosinophils Percent Auto 3.3 % (0-4.4); Hematocrit 44.3 % (42.0-52.0); Hemoglobin 14.4 g/dL (14.0-18.0); Immature Granulocyte Absolute 0.02 K/mm3 (0.00-0.031); Immature Granulocyte Percent A 0.3 % (0-0.5); Lymphocytes Absolute Auto 3.87 K/mm3 (0.9-3.2); Mean Corpuscular HGB Conc 32.5 g/dl (32-36); Mean Corpuscular Hemoglobin 27.2 pg (26-34); Mean Corpuscular Volume 83.6 fl (80-100); Mean Platelet Volume 9.2 fl (7.4-10.4); Monocytes Absolute Auto 0.6 K/mm3 (0.1-0.6); Neutrophils Absolute Auto 3.1 K/mm3 (1.3-6.7); Neutrophils Percent Auto 38.9 % (45.5-73.1); Platelet Count Result 291 k/mm3 (150-375); Red Cell Distribution Width 18.7 % (11.5-14.5); White Blood Count 7.9 K/mm3 (4.5-10.0)
[2023-11-05 16:31] LABS: Partial Thromboplastin Time 29.6 Seconds (22.3-36.8)
[2023-11-05 17:10] LABS: Anion Gap 11 mmol/L (4-12); Blood Urea Nitrogen 8 mg/dL (9-20); Calcium 9.4 mg/dL (8.4-10.2); Carbon Dioxide 24 mmol/L (22-30); Chloride 103 mmol/L (98-107); Estimated Glomerular Filt Rate > 60; Glucose 104 mg/dL (65-110); Potassium 3.9 mmol/L (3.4-5.0); Sodium 138 mmol/L (137-145)
== END 2023-11-05 14:45 | disposition home or self-care (01) ==
LOC: ANHLAB 14:47
PROVIDERS: PCP Family Medicine; Visit Provider Internal Medicine Hematology & Oncology
DX: Z01.818 Encounter for other preprocedural examination (principal)
CPT/HCPCS: 36415; 80048; 85025; 85610; 85730

== ENCOUNTER 2024-03-26 16:12 | Outpatient (RCR) | payer OTHER, SELFPAY ==
--- NOTE | 2024-04-08 07:31 | OPREHPOC ---
Outpatient Therapy Plan of Care This is a Multidisciplinary Plan of Care that may contain components documented by all disciplines (PT, OT, and ST.) PT Problem 1 PT Problem #1 Knowledge Deficit PT Goal 1 Goal / Goal Update 1. compliant with HEP at home with /family Target Visit 6 Progress Met PT Problem 2 PT Problem #2 Impaired Functional Mobility PT Goal 1 Goal / Goal Update 1. patient to perform bed mobility supine to sit and sit to supine with modified independence. not met 2. patient to perform sit to stand with modified independent in // bars. met 3. patient to perform stand pivot with CGA to chair/bed. met 4. patient to take 4 steps forward with assist of 1 therapist. met Target Visit 56 Progress Partially Met PT Goal 2 Goal / Goal Update 1. patient to perform sit to stand transfers from WC/chair with SBA. met 2. patient to ambulate 50ft with mercedez-walker with SBA. met 3. patient to perform stand pivot to WC/chair with SBA. met Target Visit 56 Progress Met PT Problem 3 PT Problem #3 Impaired Strength PT Goal 1 Goal / Goal Update 1. patient to display trace or better recruitment of mm's of the L LE. Target Visit 30 Progress Not Met PT Problem 4 PT Problem #4 Impaired Gait PT Goal 1 Goal / Goal Update Pt. will demonstrate improved gait efficiency for community participation ambulating a distance of 100' safely in 6 minutes or less without rest and with independent sit to stand and stand to sit transfer from chair before and after test. Target Visit 56 Progress Met OT Problem 1 OT Problem #1 Knowledge Deficit OT Goal 1 Goal / Goal Update CONTINUE The patient will demonstrate 100% knowledge and return demonstration for UE HEP to maintain ROM of L UE and to utilize adaptive techniques/equipment to maximize independence with ADLs. CONTINUE; 02/25/2024 GOAL MET; DISCONTINUE; 04/07/2024 Target Visit 38 Progress Partially Met OT Problem 2 OT Problem #2 Impaired Strength OT Goal 1 Goal / Goal Update CONTINUE The patient will demonstrate increased endurance for resistive exercises to R UE tolerating 10 minutes of activity/exercises with no fatigue for increased independence with transfers. 6 minutes CONTINUE; 02/25/2024 Target Visit 38 Progress Partially Met OT Goal 2 Goal / Goal Update The patient will demonstrate 4-/5 muscle strength of L elbow flexion and 2/5 strength elbow extension in order to utilize UE for ADLs PROGRESSING 01/12/24 The patient will demonstrate 3+/5 muscle strength of L shoulder abduction and shoulder flexion for better use L UE for ADLs. PROGRESSING 02/25/2024 GOAL PLATEAU; DISCONTINUE 04/07/2024 L shoulder flexion: 2-/5 L shoulder abduction: 3-/5 L elbow flexion: 4-/5 L elbow extension: 0/5 L shoulder elevation: 2-/5 Target Visit 38 Progress Met OT Problem 3 OT Problem #3 Impaired Range of Motion OT Goal 1 Goal / Goal Update The patient will demonstrate increased AROM of L UE performing (against gravity) shoulder flexion > 25 degrees, shoulder abduction >55 degrees, ( gravity eliminated) shoulder abduction >80 degrees , elbow extension moving 5 degrees from start position in order to increase functional movement of L UE to improve potential increase in supportive movements to engage in B UE activities such as fishing. GOAL DISCONTINUED; PLATEAU 04/07/2024 Against gravity: Shoulder flexion: 28 degrees Shoulder abduction: 54 degrees [place] eliminated: Shoulder abduction: 75 degrees Elbow flexion: 130 degrees Target Visit 38 Progress Met OT Goal 2 Goal / Goal Update The patient will demonstrate min assist for dressing tasks and demonstrating good understanding of adaptive techniques for increased independence and autonomy. CONTINUE; discuss alternative techniques to maximize independence; 02/25/2024 GOAL PROGRESSING; DISCONTINUE DUE TO DISINTEREST Target Visit 38 OT Problem 4 OT Problem #4 Impaired Functional ADLs OT Goal 1 Goal / Goal Update The patient will demonstrate min assist for bathing tasks and demonstrating good understanding of adaptive techniques for increased independence and autonomy. DISCONTINUE; PLATEAU; DISINTEREST IN ALTERNATIVE TECHNIQUES Target Visit 20 Progress Partially Met OT Goal 2 Goal / Goal Update STOP The patient will demonstrate increased visual attention and executive functioning skills by scoring <1 minute on Trails A and <2 minutes on Trails B in order to improve safety when engaging in daily tasks. Trails A: 0 mistakes, 47 (35 seconds) Trails B: 0 mistake, 1:26 (78 seconds) DISCONTINUE; GOAL MET; 01/12/2024 Target Visit 20 Progress Met OT Goal 1 Goal / Goal Update CONTINUE The patient to demonstrate good technique using adaptive equipment to maintain grasp and stability of fishing pole using B UE for increased independence in IADLs. PROGRESSING; CONTINUE 01/12/2024 Target Visit 20
--- NOTE | 2024-04-08 07:32 | PTOPDC ---
Assessment and note entered by JT File, PT Evaluation Information Assessment Status Discharge Diagnosis left hemiplegia and hemiparesis following CVA Other ICD-10 Condition Codes ( I69.384 PT) Onset 05/01/23 Subjective Information patient reports he is doing well at home. he reports he is getting up and walking to get things around the house. he reports he has grab bars on the side of his bed to help him get up. Reported Pain Level Pain Score 0: Self Report Pain Score 0: Self Report Assessment PT Clinical Summary mr. trejo presents to skilled PT for treatment and re-evaluation at the end of his current POC. he has made significant and consistent improvements in gait efficiency, transfer independence, and endurance. he has made additional achievements of goals below, and is independent in transfers and ambulation with mercedez-walker on flat surface. he is ready to DC therapy today, and will continue to work on HEP at home Plan of Care PT Services Indicated Yes
--- NOTE | 2024-04-14 16:32 | BUOTOPDC ---
Assessment and note entered by Meagan Del Castillo OT Evaluation Information Assessment Status Discharge Diagnosis Hemiplegia and hemiparesis following cerebral infarction Diagnosis Hemiplegia and hemiparesis following cerebral infarction affecting left Onset April 2023 Reported Pain Level Pain Score 0: Self Report Pain Score 0: Self Report Pain Score 0: Self Report Pain Score 0: Self Report Pain Score 0: Self Report Pain Score 0: Self Report Assessment OT Clinical Summary The patient demonstrates progress in R UE endurance, minimal improvement in L UE strength, and questionable compliance with UE HEP. He demonstrates difficulty utilizing adaptive techniques and compensatory strategies to perform bathing and dressing tasks due to limitations in core strength and decreased desire to change the way of performing tasks prior to stroke. He prefers to use B UE together to perform tasks and does not want to adapt ways of completing ADLs at this time due to unrealistic expectations. The patient has not been to therapy for 3-4 weeks due to scheduling issues, therapist to continue patient's POC with emphasis of education on adaptive techniques and potential for improvement of LUE at this time. The patient demonstrates minimal improvement in L UE strength, therapist changed goals to reflect increase specification on ROM increase to assess functional use of L UE and to address techniques to perform LB dressing for increase in independence. The patient has been educated this date on the importance of completing UE HEP, getting up throughout the day to attempt to use B UE together for maximal repetitions, and use of resting hand splint to avoid contractures of L hand to avoid skin breakdown and infection. The patient continues to demonstrate difficulty with attention where he requiring maximal verbal and tactile cues to engage in therapeutic exercises. The patient requires skilled OT to address L UE strength/ROM, R UE strength, adaptive techniques, and endurance in order to maximize patient's progress and functional outcomes. The patient has been educated on the importance of compliance at this time to demonstrate significant improvement in UE, patient reports understanding. Plan of Care Interventions Therapeutic Exercise,Manual Therapy,Neuro Re- education,Therapeutic Activities,Hot Pack/Cold Pack,Sensory Integrative Techniques,Self-Care/Home Management,Check Out for Orthotic/Prosthetic OT Services Indicated No OT Services Indicated Yes OT Services Indicated Yes OT Services Indicated Yes Treatment Frequency and 2x/week for 10 visits. Duration
--- NOTE | 2024-04-14 16:32 | OPREHPOC ---
Outpatient Therapy Plan of Care This is a Multidisciplinary Plan of Care that may contain components documented by all disciplines (PT, OT, and ST.) PT Problem 1 PT Problem #1 Knowledge Deficit PT Goal 1 Goal / Goal Update 1. compliant with HEP at home with /family Target Visit 6 Progress Met PT Problem 2 PT Problem #2 Impaired Functional Mobility PT Goal 1 Goal / Goal Update 1. patient to perform bed mobility supine to sit and sit to supine with modified independence. not met 2. patient to perform sit to stand with modified independent in // bars. met 3. patient to perform stand pivot with CGA to chair/bed. met 4. patient to take 4 steps forward with assist of 1 therapist. met Target Visit 56 Progress Partially Met PT Goal 2 Goal / Goal Update 1. patient to perform sit to stand transfers from WC/chair with SBA. met 2. patient to ambulate 50ft with mercedez-walker with SBA. met 3. patient to perform stand pivot to WC/chair with SBA. met Target Visit 56 Progress Met PT Problem 3 PT Problem #3 Impaired Strength PT Goal 1 Goal / Goal Update 1. patient to display trace or better recruitment of mm's of the L LE. Target Visit 30 Progress Not Met PT Problem 4 PT Problem #4 Impaired Gait PT Goal 1 Goal / Goal Update Pt. will demonstrate improved gait efficiency for community participation ambulating a distance of 100' safely in 6 minutes or less without rest and with independent sit to stand and stand to sit transfer from chair before and after test. Target Visit 56 Progress Met OT Problem 1 OT Problem #1 Knowledge Deficit OT Goal 1 Goal / Goal Update The patient will demonstrate 100% knowledge and return demonstration for UE HEP to maintain ROM of L UE and to utilize adaptive techniques/equipment to maximize independence with ADLs. GOAL MET; DISCONTINUE; 04/07/2024 Target Visit 38 Progress Partially Met OT Problem 2 OT Problem #2 Impaired Strength OT Goal 1 Goal / Goal Update The patient will demonstrate increased endurance for resistive exercises to R UE tolerating 10 minutes of activity/exercises with no fatigue for increased independence with transfers. 8 minutes; plateau DISCONTINUE; 04/07/2024 Target Visit 38 Progress Partially Met OT Goal 2 Goal / Goal Update The patient will demonstrate 4-/5 muscle strength of L elbow flexion and 2/5 strength elbow extension in order to utilize UE for ADLs PROGRESSING 01/12/24 The patient will demonstrate 3+/5 muscle strength of L shoulder abduction and shoulder flexion for better use L UE for ADLs. PROGRESSING 02/25/2024 GOAL PLATEAU; DISCONTINUE 04/07/2024 L shoulder flexion: 2-/5 L shoulder abduction: 3-/5 L elbow flexion: 4-/5 L elbow extension: 0/5 L shoulder elevation: 2-/5 Target Visit 38 Progress Not Met OT Problem 3 OT Problem #3 Impaired Range of Motion OT Goal 1 Goal / Goal Update The patient will demonstrate increased AROM of L UE performing (against gravity) shoulder flexion > 25 degrees, shoulder abduction >55 degrees, ( gravity eliminated) shoulder abduction >80 degrees , elbow extension moving 5 degrees from start position in order to increase functional movement of L UE to improve potential increase in supportive movements to engage in B UE activities such as fishing. GOAL DISCONTINUED; PLATEAU 04/07/2024 Against gravity: Shoulder flexion: 28 degrees Shoulder abduction: 54 degrees [place] eliminated: Shoulder abduction: 75 degrees Elbow flexion: 130 degrees Target Visit 38 Progress Not Met OT Goal 2 Goal / Goal Update The patient will demonstrate min assist for dressing tasks and demonstrating good understanding of adaptive techniques for increased independence and autonomy. DISCONTINUE DUE TO DISINTEREST 04/07/2024 Therapist provided handouts for adaptive equipment and techniques in order to maximize independence in ADLs. Target Visit 38 Progress Not Met OT Problem 4 OT Problem #4 Impaired Functional ADLs OT Goal 1 Goal / Goal Update The patient will demonstrate min assist for bathing tasks and demonstrating good understanding of adaptive techniques for increased independence and autonomy. DISCONTINUE; PLATEAU; DISINTEREST IN ALTERNATIVE TECHNIQUES Target Visit 20 Progress Not Met OT Goal 2 Goal / Goal Update STOP The patient will demonstrate increased visual attention and executive functioning skills by scoring <1 minute on Trails A and <2 minutes on Trails B in order to improve safety when engaging in daily tasks. Trails A: 0 mistakes, 47 (35 seconds) Trails B: 0 mistake, 1:26 (78 seconds) DISCONTINUE; GOAL MET; 01/12/2024 Target Visit 20 Progress Met OT Goal 1 Goal / Goal Update The patient to demonstrate good technique using adaptive equipment to maintain grasp and stability of fishing pole using B UE for increased independence in IADLs. DISCONTINUE; DISINTEREST IN ALTERNATIVE TECHNIQUES 01/12/2024 Target Visit 20 Progress Not Met
--- NOTE | 2024-04-16 09:00 | BUOTOPDC ---
Assessment and note entered by Meagan Del Castillo, OT Evaluation Information Assessment Status Discharge Diagnosis Hemiplegia and hemiparesis following cerebral infarction Diagnosis Hemiplegia and hemiparesis following cerebral infarction affecting left Onset April 2023 Reported Pain Level Pain Score 0: Self Report Pain Score 0: Self Report Pain Score 0: Self Report Pain Score 0: Self Report Pain Score 0: Self Report Pain Score 0: Self Report Assessment OT Clinical Summary The patient demonstrates minimal progress in L UE AROM, L UE strength, overall function of L UE and use and motivation to utilize adaptive equipment and techniques in order to maximize independence. The patient demonstrates poor carryover of HEP at home and engaging in everyday activities to increase function of affected UE. The patient has demonstrated improvements in AROM and strength since start of care with continuous disinterest in adaptive techniques. Due to the patient's plateau and poor carryover of HEP at home, therapist has educated the patient on importance of HEP and use of adaptive techniques in order to maximize his independence. The therapist has provided handouts for all information provided throughout therapy sessions and at discharge. The patient was encouraged to continue with HEP and work toward maximal independence with patient reporting understanding. Plan of Care OT Services Indicated No
== END 2024-04-07 20:00 | disposition home or self-care (01) ==
LOC: CHSPT 16:12
PROVIDERS: Visit Provider Family Medicine
DX: I69.391 Dysphagia following cerebral infarction (principal); I69.354 Hemiplegia and hemiparesis following cerebral infarction affecting left non-dominant side
CPT/HCPCS: 97110; 97112; 97140; 97530

== ENCOUNTER 2024-10-18 17:47 | Outpatient (CLI) | payer OTHER, SELFPAY ==
--- OUTSIDE RECORDS SUMMARY | 2024-10-18 17:50 | XMS_ITS | Clinical Summary ---
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 Active melatonin tablet 2 tablets (6 mg total) by PO/Per Tube route nightly as needed for sleep. Active polyethylene glycol (MIRALAX) 17 g packet 17 g by PO/Per Tube route in the morning. Active senna-docusate (SENOKOT-S) 8.6-50 MG 2 tablets by PO/Per Tube route in the morning. Active acetaminophen (TYLENOL) 325 MG tablet 2 tablets (650 mg total) by PO/Per Tube route every 4 (four) hours as needed for mild pain, moderate pain or Temp > or equal to 101F (38.3C). 06/16/2023 Active hydrOXYzine (ATARAX) 25 MG tablet 1 tablet (25 mg total) by PO/Per Tube route 3 (three) times a day as needed for anxiety. 06/16/2023 Active losartan (COZAAR) 25 MG tablet 1 tablet (25 mg total) by PO/Per Tube route in the morning. 06/17/2023 Active propranolol (INDERAL) 20 MG tablet 1 tablet (20 mg total) by PO/Per Tube route every 8 (eight) hours. 06/16/2023 Active Active Problems Problem Noted Date Diagnosed Date Acute hypoxemic respiratory failure 05/30/2023 Immunizations Immunization Administration Dates Next Due Pfizer SARS-CoV-2 Vaccination 05/31/2023 (Deferred: Offered and declined - REFUSAL) Social History Tobacco Use Types Packs/Day Years Used Date Smoking Tobacco: Former Cigarettes Tobacco Cessation:Counseling Given: No Alcohol Use Standard Drinks/Week Comments Defer 0 (1 standard drink = 0.6 oz pur e alcohol) [facility] Utilities Answer Date Recorded In the past 12 months has e electric, gas, oil, or water Pounce threatened to shut off services in your home? Patient unable to answer 06/02/2023 Social Connection and Isolation Panel [NHANES] A nswer Date Recorded In a typical week, how many times do you talk on the phone with family, friends, or neighbors? Patient unable to answer 06/02/2023 How often do you get togethe r with friends or relatives? Patient unable to answer 06/02/2023 How often do you attend chur ch or congregational services? Patient unable to answer 06/02/2023 Do you belong to any clubs o r organizations such as anabaptist groups, unions, fraternal or athletic groups, or school groups? Patient unable to answer 06/02/2023 How often do you attend meet ings of the clubs or organizations you belong to? Patient unable to answer 06/02/2023 Are you , , di vorced, , never , or living with a partner? 06/02/2023 Overall Financial Resource Strain (CARDIA) Answe r Date Recorded How hard is it for you to pa y for the very basics like food, housing, medical care, and heating? Patient unable to answer 06/02/2023 [facility] Occupat ional Health - Occupational Stress Questionnaire Answer Date Recorded Do you feel stress - tense, restless, nervous, or anxious, or unable to sleep at night because your mind is troubled all the time - these days? Not at all 06/16/2023 Hunger Vital Sign Answer Date Recorded Within the past 12 months, y ou worried that your food would run out before you got the money to buy more. Patient unable to answer 06/02/2023 Within the past 12 months, t he food you bought just didn't last and you didn't have money to get more. Patient unable to answer 06/02/2023 Housing Stability Vital Sign Answer Elvis e Recorded In the last 12 months, was t here a time when you were not able to pay the mortgage or rent on time? Patient unable to answer 06/02/2023 In the last 12 months, how m any places have you lived? 1 06/02/2023 In the last 12 months, was t here a time when you did not have a steady place to sleep or slept in a senior care (including now)? No 06/02/2023 Domestic Abuse Assessment Answer Date R ecorded Do you feel safe in your relationships at home? Unable to assess 05/31/2023 Physical Abuse Unable to assess 05/31/2023 HRSN Domestic Abuse - Type of Abuse Not on file 05/31/2023 HRSN Domestic Abuse - Time Frame Not on file 05/31/2023 HRSN Domestic Abuse - Signs and Symptoms Not on file 05/31/2023 Verbal Abuse Unable to assess 05/31/2023 HRSN Domestic Abuse - Reported To Not on file 05/31/2023 SM SDOH Transportation Source Answer Da te Recorded Has lack of transportation k ept you from medical appointments or from getting medications? No 06/16/2023 Has lack of transportation k ept you from meetings, work, or from getting things needed for daily living? No 06/16/2023 HRSN Depression PHQ-2 Answer Date Recor ded Feeling down, depressed, or hopeless 0 06/16/2023 Little interest or pleasure in doing things 0 06/16/2023 Sex and Gender Information Value Date Recorded Sex Assigned at Not on file Legal Sex Male 10:26 AM EDT Gender Identity Not on file Sexual Orientation Not on file Last Filed Vital Signs Vital Sign Reading Time Taken Comments Blood Pressure 135/60 06/16/2023 2:21 PM CDT Pulse 75 06/16/2023 7:47 AM CDT Temperature 37.1 C (98.7 F) 06/16/2023 7:47 AM CDT Respiratory Rate 17 06/16/2023 7:47 AM CDT Oxygen Saturation 96% 06/16/2023 7:47 AM CDT Inhaled Oxygen Concentration - - Weight 115.7 kg (255 lb) 05/30/2023 11:52 PM CDT Height 200.7 cm (6' 7) 05/30/2023 11:52 PM CDT Body Mass Index 28.73 05/30/2023 11:52 PM CDT Plan of Treatment Health Maintenance Due Date Last Done Comments CT Colonography 1973 Colonoscopy 1973 Colorectal Cancer Screening 1973 FIT-DNA (Cologuard) 1973 FIT 1973 FOBT 1973 Sigmoidoscopy 1973 Annual Visit Topic 1974 MMR Vaccines (1 of 1 - Stand scott series) 1974 Hepatitis C Screening 06/14/1991 Hepatitis B Vaccines (1 of 3 - 19+ 3-dose series) 1992 DTaP/Tdap/Td Vaccines (2 - T d or Tdap) 06/17/2031 06/16/2021 HIB Vaccines Aged Out No longer eligi ble based on patient's age to complete this topic HPV Vaccines Aged Out No longer eligi ble based on patient's age to complete this topic Hepatitis A Vaccines Aged Out No long er eligible based on patient's age to complete this topic IPV Vaccines Aged Out No longer eligi ble based on patient's age to complete this topic Meningococcal Vaccine Aged Out No irais darlene eligible based on patient's age to complete this topic Pneumococcal Vaccine: Pediat rics (0 to 5 years) and At-Risk Patients (6 to 64 Years) Aged Out No longer eligi ble based on patient's age to complete this topic Advance Directives * DNR (Latest Code Status on File) Date Activated Date Inactivated Comments 05/31/2023 12:54 AM 06/16/2023 9:20 PM Question Answer Comments I have discussed this order with the patient or his/her surrogate and have received informed consent. 

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
[2024-10-18 18:18] LABS: Hemoglobin A1C 6.7 % (<5.7)
[2024-10-18 18:23] LABS: Alanine Aminotransferase 49 U/L (6-50); Albumin Level 4.5 g/dL (3.5-5.1); Alkaline Phosphatase 117 U/L (38-126); Anion Gap 9 mmol/L (4-12); Aspartate Amino Transferase 25 U/L (17-59); Bilirubin,Total 0.4 mg/dL (0.2-1.3); Blood Urea Nitrogen 4 mg/dL (9-20); Calcium 9.9 mg/dL (8.4-10.2); Carbon Dioxide 27 mmol/L (22-30); Chloride 104 mmol/L (98-107); Cholesterol 140 mg/dL (0-200); Estimated Glomerular Filt Rate > 60; Glucose 117 mg/dL (65-110); HDL Direct 34 mg/dL; Osmolality Calculated 287 mOsm/kg (285-295); Potassium 4.3 mmol/L (3.4-5.0); Sodium 140 mmol/L (137-145); Total Protein 7.2 g/dL (6.3-8.2); Triglycerides 100 mg/dL (<150)
[2024-10-18 18:54] LABS: Prostate Specific Antigen 0.6 ng/mL (< OR = 4.0)
== END 2024-10-18 17:48 | disposition home or self-care (01) ==
LOC: CHSLAB 17:48
PROVIDERS: PCP Family Medicine; Visit Provider Family Medicine
DX: I10 Essential (primary) hypertension (principal); E11.9 Type 2 diabetes mellitus without complications; E78.5 Hyperlipidemia, unspecified; Z12.5 Encounter for screening for malignant neoplasm of prostate; E78.2 Mixed hyperlipidemia; Z13.1 Encounter for screening for diabetes mellitus
CPT/HCPCS: 36415; 80053; 80061; 83036; 84153; G0103